=== PATIENT | male | born 1950 | race Caucasian/White ===

== ENCOUNTER 2016-03-15 16:04 | Emergency (ER) | payer OTHER ==
[2016-03-15 16:06] VITALS: BP 131/86; PULSE 98; RESP 16; TEMP 98.1; O2SAT 95
[2016-03-15] MEDS ORDERED: KETOROLAC TROMETHAMINE 60 MG/2 ML (IM) VIAL IM ONE (18:30)
[2016-03-15] MEDS ORDERED: ORPHENADRINE INJ 60 MG/2 ML AMP IM ONE (18:30)
[2016-03-15] MEDS ORDERED: CYCL1TAB29 PO (18:33)
[2016-03-15] MEDS ORDERED: NAPR500T PO (18:33)
[2016-03-15] MEDS ORDERED: MEDR4PAK PO (18:33)
--- NOTE | 2016-03-15 18:33 | PD ---
HPI Chief Complaint: Pain: Acute or Chronic Time Seen by Provider: 18:30 Travel History International Travel<30 days: No Contact w/Intl Traveler<30days: No Traveled to known affect area: No History of Present Illness HPI 65-year-old male presents to the emergency Department with complaint of left- sided sciatica. He has history of sciatica and chronic low back pain. Pain radiates down his left leg. Denies new or recent injury. Denies heavy lifting or strain. Denies encopresis, incontinence, saddle anesthesias. Denies IV drug use. Denies cancer. Denies fever, chills, nausea, vomiting. Denies paresthesias, loss of sensation, decreased range of motion, decreased strength to bilateral lower extremities. Reports being ambulatory with the use of his cane, which is normal for him, and a limp. Pain is aggravated with certain movements and walking. He has seen his chiropractor twice with some relief of pain. He is taking ibuprofen and Tylenol with some relief of pain for shortness time. Has used ice to the affected area with good relief of pain. Denies anticoagulants. No known allergies. History of hypertension. No other modifying factors or associated signs and symptoms. PFSH Past Medical History Hypertension: Yes Social History Tobacco Use: No Allergies-Medications (Allergen,Severity, Reaction): Coded Allergies: No Known Allergies (Unverified , 03/15/16) Reported Meds & Prescriptions Reported Meds & Active Scripts Active Flexeril (Cyclobenzaprine HCl) 10 Mg Tab 10 Mg PO TID PRN Medrol Dosepak (Methylprednisolone) 4 Mg Dspk 4 Mg PO DIRECTED Per Pharmacist direction Naproxen 500 Mg Tab 500 Mg PO BID PRN 7 Days Review of Systems Except as stated in HPI: all other systems reviewed are Neg Physical Exam Narrative GENERAL: Well-nourished, well-developed male patient, in no acute distress SKIN: Warm and dry. HEAD: Atraumatic. Normocephalic. EYES: Pupils equal and round. No scleral icterus. No injection or drainage. ENT: Mucosa pink and moist. Airway patent. NECK: Trachea midline. CARDIOVASCULAR: Regular rate. RESPIRATORY: No accessory muscle use. GASTROINTESTINAL: Rounded. MUSCULOSKELETAL: Bilateral lower extremities supple and non-tense with 2+ pedal pulses and sensory intact; with full range of motion and 5/5 strength. 2 + DTRs. Active dorsiflexion and extension of bilateral feet. Bilateral straight leg raise is negative for low back pain. Ambulatory with cane and guarded gait. Sitting up in bed at 90. No obvious deformities. No clubbing. No cyanosis. No edema. BACK: No midline point tenderness on palpation of the lumbar, thoracic spine. Tenderness on palpation of left iliosacral area. No obvious deformities. NEUROLOGICAL: Awake and alert. Oriented 3. No obvious cranial nerve deficits. Motor grossly within normal limits. Normal speech. Moves all extremities. 5/5 strength to all extremities. Sensory intact. PSYCHIATRIC: Appropriate mood and affect; insight and judgment normal. Data Data Last Documented VS Vital Signs Date Time Temp Pulse Resp B/P Pulse Ox O2 Delivery O2 Flow Rate FiO2 03/15/16 16:06 98.1 98 16 131/86 95 Orders Ketorolac Inj (Toradol Inj) (03/15/16 18:30) Orphenadrine Inj (Norflex Inj) (03/15/16 18:30) MDM Medical Decision Making Medical Screen Exam Complete: Yes Emergency Medical Condition: Yes Medical Record Reviewed: Yes Differential Diagnosis Sciatica, acute exacerbation of chronic low back pain, lumbar radiculopathy, low back strain Narrative Course 55-year-old male physical exam and history of present illness consistent with acute exacerbation of chronic low back pain and left-sided sciatica. No midline point tenderness on palpation of the lumbar spine. Reproducible tenderness to the left iliosacral area. Patient is ambulatory at the bedside with assistance with his cane. Toradol and Norflex administered in the ER. Naproxen, Flexeril, Medrol Dosepak prescribed for home. Patient is medically cleared and stable for discharge. Discussed reasons to return to the emergency department. Instructed patient to follow up with primary care provider. Patient agrees with treatment plan. The patients vital signs are stable and the patient is stable for outpatient follow-up and treatment. Patient discharged home, stable and in no acute distress. Diagnosis Primary Impression: Sciatica of left side Referrals: Primary Care Physician Patient Instructions: General Instructions, Sciatica (ED) Additional Instructions: Tylenol or ibuprofen as directed and as needed for pain Flexeril as prescribed and as needed for muscle spasms Heating pad and/or ice to affected area to reduce pain Avoid aggravating activities; increase activity as tolerated Follow-up with primary care provider Return to emergency department immediately with worsening of symptoms Med/Other Pt SpecificInfo: Prescription(s) given Scripts Cyclobenzaprine (Flexeril)10 Mg Tab10 Mg PO TID PRN (MUSCLE SPASM) #30 TAB Ref 0 Prov:Silvana Metcalf 03/15/16 Methylprednisolone Dosepak (Medrol Dosepak)4 Mg Dspk4 Mg PO DIRECTED #1 DSPK Ref 0 Per Pharmacist direction Prov:Silvana Metcalf 03/15/16 Naproxen 500 Mg [id number] Mg PO BID PRN (PAIN SCALE 1 TO 10) 7 Days Ref 0 Prov:Silvana Metcalf 03/15/16 Disposition: 01 DISCHARGE HOME Condition: Stable Silvana Metcalf Mar 15, 2016 18:33
== END 2016-03-15 19:39 | disposition home or self-care (01) ==
LOC: NEPB 16:04
DX: M54.32 Sciatica, left side (principal); M54.5 Low back pain; G89.29 Other chronic pain; I10 Essential (primary) hypertension
CPT/HCPCS: 96372; 99283; J1885; J2360

== ENCOUNTER 2016-03-19 11:50 | Emergency (ER) | payer OTHER ==
[~2016-03-19] VITALS: Ht 182.9 cm; Wt 111.0 kg
[~2016-03-19 11:50] MED LIST: CYCL1TAB29 PO; MEDR4PAK PO; NAPR500T PO
[2016-03-19 11:53] VITALS: BP 175/99; PULSE 126; RESP 28; TEMP 98; O2SAT 98
[2016-03-19 12:05] VITALS: PULSE 120; RESP 26; O2SAT 98
--- NOTE | 2016-03-19 12:55 | PD ---
HPI Chief Complaint: Back/ Neck Pain or Injury Time Seen by Provider: 12:52 Travel History International Travel<30 days: No Contact w/Intl Traveler<30days: No Traveled to known affect area: No History of Present Illness HPI 4-3[age]-old male presents to the emergency Department with complaint of continued left lower back pain. I saw this patient on March 15 with left- sided sciatica. Patient has history of chronic low back pain. He says the medications he was given when he was seen here on the are not working. He has not followed up outpatient. Denies encopresis, incontinence, saddle anesthesias. Denies IV drug use. Denies cancer. Denies fever, chills, nausea , vomiting. Denies paresthesias, loss of sensation, decreased range of motion, decreased strength to bilateral lower extremities. Pain is worse with movement and palpation. He is requesting an x-ray. Does not have primary care in this area. Denies allergies. No other modifying factors or associated signs and symptoms. [facility] Past Medical History Hypertension: Yes Social History Tobacco Use: No Allergies-Medications (Allergen,Severity, Reaction): Coded Allergies: No Known Allergies (Unverified , 03/19/16) Reported Meds & Prescriptions Reported Meds & Active Scripts Active Flexeril (Cyclobenzaprine HCl) 10 Mg Tab 10 Mg PO TID PRN Medrol Dosepak (Methylprednisolone) 4 Mg Dspk 4 Mg PO DIRECTED Per Pharmacist direction Naproxen 500 Mg Tab 500 Mg PO BID PRN 7 Days Review of Systems Except as stated in HPI: all other systems reviewed are Neg Physical Exam Narrative GENERAL: Well-nourished, well-developed male patient, in no acute distress SKIN: Warm and dry. HEAD: Atraumatic. Normocephalic. EYES: Pupils equal and round. No scleral icterus. No injection or drainage. ENT: Mucosa pink and moist. Airway patent. NECK: Trachea midline. CARDIOVASCULAR: Regular rate. RESPIRATORY: No accessory muscle use. GASTROINTESTINAL: Rounded. MUSCULOSKELETAL: Bilateral lower extremities supple and non-tense with 2+ pedal pulses and sensory intact; with full range of motion and 5/5 strength. Active dorsiflexion and extension of bilateral feet. Left straight leg raise is negative for low back pain. Right straight leg raise is negative for low back pain. Ambulatory with assistance with his cane. Sitting up in bed at 90 . No obvious deformities. No clubbing. No cyanosis. No edema. BACK: No midline point tenderness on palpation of the lumbar spine. Tenderness on palpation of left iliosacral area. No obvious deformities. Left hip with full range of motion; without tenderness on abduction. NEUROLOGICAL: Awake and alert. Oriented 3. No obvious cranial nerve deficits. Motor grossly within normal limits. Normal speech. Moves all extremities. 5/5 strength to all extremities. Sensory intact. PSYCHIATRIC: Appropriate mood and affect; insight and judgment normal. Data Data Last Documented VS Vital Signs Date Time Temp Pulse Resp B/P Pulse Ox O2 Delivery O2 Flow Rate FiO2 03/19/16 13:02 100 20 159/90 98 Room Air 03/19/16 11:53 98.0 Orders Spine, Lumbar - Ltd (Ap & Lat) (03/19/16 12:52) [facility] Medical Decision Making Medical Screen Exam Complete: Yes Emergency Medical Condition: Yes Medical Record Reviewed: Yes Differential Diagnosis Sciatica, acute exacerbation of chronic low back pain, medical clearance Narrative Course 65-year-old male physical exam consistent with left-sided sciatica. I saw this patient on March 15 for the same complaint. He is requesting an x-ray of his lower back. Denies new or recent injury. No midline point tenderness on palpation of the lumbar spine. Reproducible tenderness to palpation of the left iliosacral area. Denies IV drug use. Denies cancer. Denies fever, chills , nausea, vomiting. Denies encopresis, incontinence, saddle anesthesias. Lumbar spine x-ray with no acute findings. Instructed patient to follow up outpatient and he verbalizes understanding and agreement. Instructed patient to continue medications as prescribed previously. Patient is medically cleared and stable for discharge. Discussed reasons to return to the emergency department. Instructed patient to follow up with primary care provider. Patient agrees with treatment plan. The patients vital signs are stable and the patient is stable for outpatient follow-up and treatment. Patient discharged home, stable and in no acute distress. Diagnosis Primary Impression: Sciatica of left side Referrals: Primary Care Physician Patient Instructions: General Instructions, Sciatica (ED) Departure Forms: Tests/Procedures Additional Instructions: Tylenol or ibuprofen as directed and as needed for pain Heating pad and/or ice to affected area to reduce pain Avoid aggravating activities; increase activity as tolerated Follow-up with primary care provider Return to emergency department immediately with worsening of symptoms Med/Other Pt SpecificInfo: No Change to Meds, No Meds Exist/No RX given Disposition: 01 DISCHARGE HOME Condition: Stable Silvana Metcalf Mar 19, 2016 12:55
[2016-03-19 13:02] VITALS: BP 159/90; PULSE 100; RESP 20; O2SAT 98
--- NOTE | 2016-03-19 14:04 | RADRPT ---
EXAM DATE/TIME: 03/19/2016 13:29 [facility] COMPARISON: No previous studies available for comparison. INDICATIONS : Lower back pain, no injury. MEDICAL HISTORY : None. SURGICAL HISTORY : None. ENCOUNTER: Initial ACUITY: 1 week PAIN SCORE: 10/10 LOCATION: lower back FINDINGS: AP and lateral views of the lumbar spine show a mild grade 1 anterolisthesis of L4 on L5. No fracture s or dislocations. Diffuse disc space narrowing with relative sparing of L3-L4. Diffuse facet arthrop athy changes most pronounced at L4-L5 and L5-S1. Calcified plaque involving the abdominal aorta. CONCLUSION: Degenerative changes. No acute abnormality. Rick Barlow Jr., MD on March 19, 2016 at 14:01 Board Certified Radiologist. This report was verified electronically.
== END 2016-03-19 14:20 | disposition home or self-care (01) ==
LOC: NEPB 11:50
DX: M54.32 Sciatica, left side (principal); G89.29 Other chronic pain; M54.5 Low back pain; I10 Essential (primary) hypertension
CPT/HCPCS: 72100; 99283